=== PATIENT | female | born 1980 | race Caucasian/White ===

== ENCOUNTER 2016-08-24 10:14 | Day surgery (SDC) | payer MEDICAID ==
[~2016-08-24] VITALS: Ht 170.2 cm; Wt 104.5 kg
[2016-08-24 10:49] VITALS: BP 117/63; Ht 170.2 cm; Wt 104.5 kg
== END 2016-08-24 12:10 | disposition home or self-care (01) ==
LOC: D.OPS 10:14
DX: M54.5 Low back pain (principal); R10.30 Lower abdominal pain, unspecified; Z53.9 Procedure and treatment not carried out, unspecified reason

== ENCOUNTER 2017-05-19 22:47 | Emergency (ER) | payer MEDICAID ==
[2016-08-24 10:49] VITALS: BMI 36.1
== END 2017-05-20 00:30 | disposition home or self-care (01) ==
LOC: D.ER 22:47
DX: M54.16 Radiculopathy, lumbar region (principal); M71.58 Other bursitis, not elsewhere classified, other site; F17.200 Nicotine dependence, unspecified, uncomplicated

== ENCOUNTER → 2017-07-01 14:52 | Outpatient (CLI) | payer MEDICAID ==
[2016-08-24 10:49] VITALS: BMI 36.1
== END | disposition home or self-care (01) ==
LOC: D.US 14:52
DX: S80.12XA Contusion of left lower leg, initial encounter (principal); X58.XXXA Exposure to other specified factors, initial encounter; Y93.89 Activity, other specified; Y92.029 Unspecified place in mobile home as the place of occurrence of the external cause; M79.605 Pain in left leg

== ENCOUNTER 2017-07-20 14:52 | Emergency (ER) | payer MEDICAID ==
[2016-08-24 10:49] VITALS: BMI 36.1
== END 2017-07-20 17:03 | disposition home or self-care (01) ==
LOC: D.ER 14:52
DX: S39.012A Strain of muscle, fascia and tendon of lower back, initial encounter (principal); X58.XXXA Exposure to other specified factors, initial encounter; Y93.89 Activity, other specified; Y92.019 Unspecified place in single-family (private) house as the place of occurrence of the external cause; M62.838 Other muscle spasm; M54.5 Low back pain; F17.200 Nicotine dependence, unspecified, uncomplicated

== ENCOUNTER 2017-10-04 22:20 | Emergency (ER) | payer MEDICAID ==
[2016-08-24 10:49] VITALS: BMI 36.1
[2017-10-04 23:18] LABS: BASOPHILS 0 % (0-2); EOSINOPHILS 1.6 % (0-7); HEMATOCRIT 47.5 % (36.0-48.0); HEMOGLOBIN 15.7 g/dL (12-16); IMMATURE GRANULOCYTES 0.2 % (0-5); LYMPHOCYTES 9.2 % (15-50); MCH 30.9 pg (26.0-34.0); MCHC 33.1 g/dL (31.0-37.0); MCV 93.5 fL (80.0-100.0); MEAN PLATELET VOLUME 9.8 fL (7.4-10.4); MONOCYTES 10.8 % (2-11); NEUTROPHILS 78.2 % (40-80); RBC 5.08 10x6/uL (4.00-5.40); RDW 13.4 % (11.5-14.5); WBC 5.6 10x3/uL (4.8-10.8)
[2017-10-04 23:19] LABS: PLATELET COUNT 179 10x3/uL (130-400)
== END 2017-10-05 00:42 | disposition home or self-care (01) ==
LOC: D.ER 22:20
PROVIDERS: Family Medicine
DX: J20.9 Acute bronchitis, unspecified (principal); J06.9 Acute upper respiratory infection, unspecified

== ENCOUNTER 2018-05-19 23:17 | Emergency (ER) | payer MEDICAID ==
[~2018-05-19] VITALS: Ht 170.2 cm; Wt 100.0 kg
[2018-05-19 23:29] VITALS: Ht 170.2 cm; Wt 100.0 kg
[2018-05-19] MEDS ORDERED: ADDERALL 20 MG20 M1 PO (23:30)
[2018-05-20] MEDS ORDERED: BACTRIM 400-801 TAB PO (00:18)
[2018-05-20] MEDS ORDERED: ULTRAM50 MG PO (00:18)
[2018-05-20 00:27] VITALS: BP 129/71
== END 2018-05-20 00:27 | disposition home or self-care (01) ==
LOC: D.ER 23:17
DX: L02.415 Cutaneous abscess of right lower limb (principal); F17.200 Nicotine dependence, unspecified, uncomplicated

== ENCOUNTER → 2020-04-11 14:56 | Outpatient (CLI) | payer MEDICAID ==
[2018-05-19 23:29] VITALS: BMI 34.5
[~2020-04-11 14:56] MED LIST: ADDERALL 20 MG20 M1 PO; BACTRIM 400-801 TAB PO; ULTRAM50 MG PO
== END | disposition home or self-care (01) ==
LOC: D.MRI 14:56
PROVIDERS: ATTEND Orthopaedic Surgery
DX: S83.241A Other tear of medial meniscus, current injury, right knee, initial encounter (principal)

== ENCOUNTER → 2020-04-25 12:25 | Outpatient (CLI) | payer MEDICAID ==
[2018-05-19 23:29] VITALS: BMI 34.5
== END | disposition home or self-care (01) ==
LOC: D.MRI 12:25
PROVIDERS: ATTEND Orthopaedic Surgery
DX: S83.242A Other tear of medial meniscus, current injury, left knee, initial encounter (principal)

== ENCOUNTER 2020-05-02 10:03 | Day surgery (SDC) | payer MEDICAID ==
[~2020-05-02] VITALS: Ht 167.6 cm; Wt 95.3 kg
[~2020-05-02 10:03] MED LIST changes: +IBUPROFEN800 MG PO
[2020-05-02 10:35] LABS: HEMATOCRIT 46.8 % (36.0-48.0); HEMOGLOBIN 15.4 g/dL (12-16); MCH 30.7 pg (26.0-34.0); MCHC 32.9 g/dL (31.0-37.0); MCV 93.4 fL (80.0-100.0); MEAN PLATELET VOLUME 9.8 fL (7.4-10.4); RBC 5.01 10x6/uL (4.00-5.40); RDW 13.3 % (11.5-14.5)
[2020-05-02 12:04] VITALS: BP 109/46; Ht 167.6 cm; Wt 95.3 kg
--- NOTE | 2020-05-02 14:51 | NUR ---
1450 PT ASKING FOR PAIN MEDICATION AND MORE AWAKE. CONTINUING TO MONITOR OXYGEN SATURATION. PT IS EATING CHOCOLATE PUDDING AND DRINKING WATER.
--- NOTE | 2020-05-02 15:03 | NUR ---
1500 PT AWAKE AND ALERT. DISCONTINUED BNC. O2 SAT AT 97% ON BNC2L. MEDICATED FOR PAIN.
--- NOTE | 2020-05-02 15:50 | NUR ---
1541 IV DC'D. CATHETER TIP INTACT. NO BLEEDING AT SITE. BANDAID APPLIED. REVIEWED DISCHARGE INSTRUCTIONS WITH PT AND HER WHO BOTH VOICE UNDERSTANDING OF INSTRUCTIONS.
--- NOTE | 2020-05-05 07:57 | OP ---
PATIENT NAME: JAELYN BURKETT MEDICAL RECORD: [id number] :76 LOCATION:D.OPS ADMISSION DATE: SURGEON: TREVOR HERNANDEZ DO DATE OF OPERATION: 05/02/2020 PROCEDURE PERFORMED: Right knee arthroscopy with partial medial meniscectomy. PREOPERATIVE DIAGNOSIS: Right knee medial meniscal tear. POSTOPERATIVE DIAGNOSIS: Right knee medial meniscal tear. INDICATIONS: Ms. Burkett is a 39-year-old female who has had right knee pain in the past and it started again. She had a scope previously by someone else and then started having pain again and came to see me. An MRI was done, showing the medial meniscal tear. I informed her of the risks including retear, infection, bleeding, damage to nerves or vessels in the area, continued pain, arthrofibrosis, blood clots, and even and she signed the consent. SURGEON: Trevor Hernnadez DO DESCRIPTION OF PROCEDURE: The patient was taken to the operative suite, laid in supine position, given 2 g Ancef preoperatively. The right lower extremity was then prepped and draped in sterile fashion. After sedating, an LMA was placed. After the time-out was performed, I started by injecting the medial and lateral portal sites with 0.25% Marcaine with epinephrine 4 mL in each and then established a lateral portal with an 11-blade scalpel. Trocar entered into the joint. I inspected the suprapatellar pouch. No loose bodies seen in it. The cartilage was in good repair, also the patella. No loose bodies in medial or lateral gutters. I entered the medial compartment and established a medial portal with an 18-gauge spinal needle and 11-blade scalpel. I then brought in the trocar and then a probe. I probed the medial meniscus and the posterior horn of medial meniscus to the medial portion. There was a tear on the superior portion in the white-white zone. I then brought in a biter and shaver and trimmed out to a stable point. I then probed the ACL and it was in good repair. The lateral compartment was also inspected. I [id number]'ed in the knee. There was no tear seen in the lateral meniscus and the cartilage was in a good shape there as well. I then inspected the patellofemoral joint and there were no loose bodies and the patellofemoral joint did not have any chondromalacia either. I then turned off the water and turned on the suction. I removed excess fluid from the knee and then removed the instruments from the knee. The portal sites were then closed by Ena Giraldo, certified surgical first aid officer, with 4-0 Monocryl in inverted interrupted fashion. Steri-Strips, Adaptic, 4 x 4, ABD, Webril, and Darrick wrap were then placed on the patient. She was awakened and taken to recovery in stable condition. BLOOD LOSS: Minimal. COMPLICATIONS: None. NTS:[id number] Voice Confirmation ID: [id number] DOCUMENT ID: [id number] OPERATIVE REPORT [id number] JAELYN BURKETT MICHAEL D, DO at 0757 CC: [id number] DICTATION DATE: 05/02/20 1418 RESIDENTIAL SALES CONSULTANT: 05/02/202043 [facility] [place] 05/02/20 [facility] [address] [place] [address]
== END 2020-05-02 15:52 | disposition home or self-care (01) ==
LOC: D.OPS 10:03 → D.PAN 17:15
PROVIDERS: Anesthesiology; ATTEND Orthopaedic Surgery
DX: S83.241A Other tear of medial meniscus, current injury, right knee, initial encounter (principal); X58.XXXA Exposure to other specified factors, initial encounter

== ENCOUNTER 2020-11-26 06:08 | Day surgery (SDC) | payer BC ==
[~2020-11-26] VITALS: Ht 170.2 cm; Wt 99.8 kg
--- NOTE | ~2020-11-26 | OP ---
PATIENT NAME: JAELYN REYES MEDICAL RECORD: [id number] :76 LOCATION:D.OPS ADMISSION DATE: SURGEON: MIHAELA JADE DPM DATE OF OPERATION: 11/26/2020 PREOPERATIVE DIAGNOSES: 1. Hallux abductovalgus, right foot. 2. Instability, right first metatarsocuneiform joint. POSTOPERATIVE DIAGNOSES: 1. Hallux abductovalgus, right foot. 2. Instability, right first metatarsocuneiform joint. PROCEDURES: 1. [place] bunionectomy, right foot. 2. First met cuneiform joint fusion, right foot. ANESTHESIA: Preoperative popliteal block per the anesthesia department as well as intraoperative general anesthesia. HEMOSTASIS: Right thigh tourniquet at 320 mmHg. PREOPERATIVE DETAILS: The patient was taken to the OR and placed on the operating table in a supine position. This was followed by induction of general anesthesia. The right extremity was then prepped and draped in the usual aseptic technique followed by exsanguination and inflation of tourniquet. PROCEDURE #1: [place] bunionectomy, right foot. A 15 blade was used to create an incision from the dorsal aspect of the medial cuneiform distally to the base of the proximal phalanx of the hallux. The incision was deepened down through subcutaneous tissue to the first MPJ. An inverted L capsulotomy was performed and a medial capsular flap was reflected. The head of the first metatarsal was delivered. A sagittal saw was used to resect the medial eminence. Attention was then directed to the first interspace where a lateral release was performed. Good clinical reduction of the lateral contracture was verified. PROCEDURE #2: Fusion first met cuneiform joint, right foot. The incision as described above was utilized. Dissection was carried down to the periosteum. The first met cuneiform joint was delivered. A sagittal saw was used to resect the joint followed by temporary fixation. Proper alignment was noted. A 5-hole plate with one screw crossing through the plate across the fusion site was placed under excellent rigid internal fixation. C-arm was used to verify good placement as well as alignment. The wound was flushed. The periosteum deep tissue as well as the capsule was repaired with 2-0 Vicryl, the subcutaneous tissue with 4-0 Rapide and the skin was closed with 4-0 Rapide in a subcuticular technique followed by Dermabond, Adaptic, 4 x 4 and conform were used to dress the wound followed by application of modified Milan compression dressing. Tourniquet was deflated. POSTOPERATIVE DETAILS: The patient tolerated the procedure well and left the OR with vital signs stable and vascular status at preoperative levels. The patient was transported to recovery per anesthesia in stable condition. TRANSINT:[id number] Voice Confirmation ID: [id number] DOCUMENT ID: [id number] OPERATIVE REPORT [id number] JAELYN REYES MCKAY DPM CC: [id number] DICTATION DATE: 11/26/20 1129 AIR CARRIER OPERATIONS INSPECTOR: 11/26/20 1512 [facility] 11/26/20 [facility] [address] [place] [address]
[2020-11-26 07:03] VITALS: BP 132/81; Ht 170.2 cm; Wt 99.8 kg
[2020-11-26 07:04] LABS: HEMATOCRIT 43.9 % (36.0-48.0); HEMOGLOBIN 14.1 g/dL (12-16); MCH 29.8 pg (26.0-34.0); MCHC 32.1 g/dL (31.0-37.0); MCV 92.8 fL (80.0-100.0); MEAN PLATELET VOLUME 10.2 fL (7.4-10.4); RBC 4.73 10x6/uL (4.00-5.40); RDW 13.6 % (11.5-14.5); WBC 7.2 10x3/uL (4.8-10.8)
--- NOTE | 2020-11-26 13:21 | NUR ---
DISCHARGED VIA W/C, ACCOMPANIED BY [facility], TO [facility] WITH FAMILY DRIVING. ALL BELONGINGS AND DC PACKET WITH PT.
== END 2020-11-26 13:21 | disposition home or self-care (01) ==
LOC: D.OPS 06:08
PROVIDERS: Anesthesiology; ATTEND Podiatrist
DX: M20.11 Hallux valgus (acquired), right foot (principal); M25.374 Other instability, right foot; F17.200 Nicotine dependence, unspecified, uncomplicated